=== PATIENT | female | born 1965 | race Caucasian/White ===

== ENCOUNTER 2018-01-21 15:34 | Emergency (ER) | payer OTHER ==
[2018-01-21 15:50] VITALS: TEMP 98; O2SAT 98
[2018-01-21] MEDS ORDERED: KETOROLAC TROMETHAMINE INJ 30 MG/ML VIAL IV ONE (15:52)
[2018-01-21] MEDS ORDERED: ORPHENADRINE CITRATE 30 MG/ML AMP IV ONE (15:52)
--- NOTE | 2018-01-21 17:03 | CT ---
EXAM DESCRIPTION: CT-Head CLINICAL HISTORY: Headache. COMPARISON: None available TECHNIQUE: Multiple axial images of the head without contrast. Multiplanar reformatted images. This exam was performed according to our departmental dose-optimization program, which includes automated exposure control, adjustment of the mA and/or kV according to patient size and/or use of iterative reconstruction technique. FINDINGS: There is no CT evidence of intracranial hemorrhage, mass effect, or large territory infarction. The brain parenchyma and ventricles are normal. There are no abnormal extra-axial fluid collections. Vascular structures are unremarkable. There is no acute calvarial defect. There is patchy opacification of the ethmoid air cells. Hypoplastic right frontal sinus. The mastoid air cells are clear. IMPRESSION: 1. No CT evidence of an acute intracranial abnormality. If there is concern for an acute or subacute infarct, consider follow-up MRI. 2. Patchy opacification/inflammatory changes in the ethmoid air cells. Electronically signed by: Nikhil Dobson MD 01/21/2018 5:01 PM CDT
[2018-01-21 19:21] VITALS: BP 133/99
--- NOTE | 2018-01-21 19:32 | ED.PDOC ---
History of Present Illness - General Chief Complaint: Neuro Symptoms/Deficits Stated Complaint: headache Time Seen by Provider: 01/21/18 15:44 - History of Present Illness Allergies/Adverse Reactions: Allergies Codeine Allergy (Verified 10/20/12 14:19) Hydrocodone Allergy (Verified 10/20/12 14:19) Home Medications: Ambulatory Orders Indomethacin 50 mg PO TID PRN #14 cap 01/21/18 Sulfa/Trimeth 800/160 (Ds) Tab [Bactrim DS Tab] 1 ea PO BID #14 tab 01/21/18 Past Medical History (General) - Patient Medical History Hx Stroke: No Hx Congestive Heart Failure: No Hx Diabetes: No Surgical History: Hysterectomy - Vaccination History Hx Influenza Vaccination: Yes - Social History Hx Tobacco Use: No - Female History Patient is a Female of Child Bearing Age (10 -59 yrs old): No Family Medical History - Family History Mother Family History: Unknown Living Status: Still Living Departure - Departure Clinical Impression: Sinusitis chronic, ethmoidal Headache Qualifiers: Headache type: unspecified Headache chronicity pattern: acute headache Intractability: not intractable Qualified Code(s): R51 - Headache Time of Disposition: 19:44 Disposition: Discharge to Home or Self Care Condition: Good Departure Forms: ED Discharge - Pt. Copy, Patient Portal Self Enrollment Instructions: Sinusitis, Tension Headache, Sinus Headache Referrals: Britta Koo NP [Primary Care Provider] - 1-2 Weeks Prescriptions: Indomethacin 50 mg PO TID PRN #14 cap PRN Reason: Pain Sulfa/Trimeth 800/160 (Ds) Tab [Bactrim DS Tab] 1 ea PO BID #14 tab Home Medications: Ambulatory Orders Indomethacin 50 mg PO TID PRN #14 cap 01/21/18 Sulfa/Trimeth 800/160 (Ds) Tab [Bactrim DS Tab] 1 ea PO BID #14 tab 01/21/18
== END 2018-01-21 20:02 | disposition home or self-care (01) ==
LOC: ER 15:34
DX: J32.2 Chronic ethmoidal sinusitis (principal); R51 Headache

== ENCOUNTER → 2019-08-15 | Outpatient (CLI) | payer OTHER ==
--- NOTE | 2019-08-15 08:07 | RAD ---
EXAM DESCRIPTION: Pelvis CLINICAL HISTORY: 53 years Female, PAIN IN RIGHT HIP COMPARISON: Previous x-ray pelvis November 25, 2012 FINDINGS: Orthopedic hardware in the lower lumbar spine with complete L5 laminectomy. Calcifications in the pelvis are thought to be vascular. Bones of the pelvic ring appear intact. Degenerative changes of the pubic symphysis. Proximal femurs appear intact. No significant joint space narrowing. IMPRESSION: Negative for fracture or dislocation. Electronically signed by: Luis Lamas MD 08/15/2019 8:06 AM CDT
--- NOTE | 2019-08-15 08:09 | RAD ---
EXAM DESCRIPTION: Knee,Right Complete four x-ray views CLINICAL HISTORY: 53 years, Female, PAIN IN RIGHT KNEE COMPARISON: None TECHNIQUE: Four views of the right knee standing FINDINGS: No fracture or dislocation. Bones appear normally mineralized with normal trabecular pattern. Normal appearance of medial and lateral compartments on frontal view. Mild spurring at the medial joint line. Lateral view shows normal position of the patella. No patellar spurring or enthesopathy. No suprapatellar knee joint effusion. Normal contour of quadriceps and patellar tendons. No abnormal patellar tilt or subluxation on patellar sunrise view. Mild spurring along the lateral patellar margin. IMPRESSION: Negative for fracture or dislocation. Electronically signed by: Luis Lamas MD 08/15/2019 8:08 AM CDT
== END ==
LOC: RAD 07:34
PROVIDERS: ATTEND Orthopaedic Surgery
DX: M25.561 Pain in right knee (principal); M25.551 Pain in right hip